=== PATIENT | male | born 1970 | race Caucasian/White ===

== ENCOUNTER 2018-05-23 05:28 | Inpatient (IN) | payer BC ==
[2018-05-23] MEDS ORDERED: ACETAMINOPHEN 500 MG TAB PO ONE (06:08)
[2018-05-23] MEDS ORDERED: ceFAZolin 2 GM/DEXTROSE 100 ML IV ONE (06:08)
[2018-05-23] MEDS ORDERED: GABAPENTIN 300 MG CAP PO ONE (06:08)
[2018-05-23] MEDS ORDERED: LR 1,000 ML IV ONE (06:25)
[2018-05-23] MEDS ORDERED: LIDOCAINE 1% 2 ML INJ ID PRN (06:25)
--- NOTE | 2018-05-23 06:43 | PDHPUP ---
History & Physical Update H&P update statement: This history and physical update is based on an assessment of the patient which was completed after admission or registration (within 24 hours), but prior to the surgery/procedure. H&P update: H&P reviewed & patient examined, no change in patient's condition since H&P completed
[2018-05-23] MEDS ORDERED: BUPIVACAINE 0.25% 30 ML SDV ONE (06:45)
[2018-05-23] MEDS ORDERED: THROMBIN (BOVINE) 5,000 UNIT VIAL TP ONE (06:46)
[2018-05-23] MEDS ORDERED: GENTAMICIN SULFATE 80 MG/2 ML VIAL ONE (06:46)
[2018-05-23] MEDS ORDERED: CHLORHEXIDINE GLUC HIBICLENS 118 ML BTL TP ONE (06:46)
[2018-05-23] MEDS ORDERED: SURGIFLO MATRIX KIT WITH THROMBIN 8 ML TP ONE ×2 (06:46→08:35)
--- NOTE | 2018-05-23 06:48 | PDANEPAE ---
ANE History of Present Illness here for [facility] ANE Past Medical History - Cardiovascular History Hx Hypertension: No Hx Arrhythmias: No Hx Chest Pain: No Hx Coronary Artery / Peripheral Vascular Disease: No Hx CHF / Valvular Disease: No Hx Palpitations: No - Pulmonary History Hx COPD: No Hx Asthma/Reactive Airway Disease: No Hx Recent Upper Respiratory Infection: No Hx Oxygen in Use at Home: No Hx Sleep Apnea: Yes Sleep Apnea Screening Result - Last Documented: Positive - Neurologic History Hx Cerebrovascular Accident: No Hx Seizures: No Hx Dementia: No - Endocrine History Hx Diabetes: No - Renal History Hx Renal Disorders: No - Liver History Hx Hepatic Disorders: No - Neurological & Psychiatric Hx Hx Neurological and Psychiatric Disorders: Yes Neurological / Psychiatric History Comment: tingling to R ankle and foot,toes with go sleep - Cancer History Hx Cancer: No - Congenital Disorder History Hx Congenital Disorders: No - GI History Hx Gastrointestinal Disorders: No - Other Health History Other Health History: NONE - Chronic Pain History Chronic Pain: No - Surgical History Prior Surgeries: none in last 5 yrs. last sx knee 2001tendon repair ANE Review of Systems Review of Systems: - Exercise capacity Exercise capacity: >=4 METS METS (RN): 5 METS ANE Patient History - Allergies Allergies/Adverse Reactions: No Known Allergies Allergy (Verified 05/21/18 14:28) - Home Medications Home medications: home medication list seen and reviewed Home Medications: NK [No Known Home Meds] 05/21/18 [Last Taken Unknown] - NPO status NPO Status: no food or drink >8 hours - Smoking Hx Smoking Status: Never smoked - Family Anes Hx Family Hx Anesthesia Complications: none ANE Labs/Vital Signs - Vital Signs Vital Signs: reviewed preoperatively; see RN documention for details Height: 180.34 cm Weight: 131.542 kg ANE Physical Exam - Airway Neck exam: FROM, increased neck circumference Mallampati Score: Class 2 Mouth exam: normal dental/mouth exam - Pulmonary Pulmonary: no respiratory distress - Cardiovascular Cardiovascular: regular rate and rhythym - ASA Status ASA Status: II ANE Anesthesia Plan Anesthesia Plan: general endotracheal anesthesia
[2018-05-23] MEDS ORDERED: oxyCODONE IR 5 MG TAB PO PRN (07:00)
[2018-05-23] MEDS ORDERED: ALBUTEROL 3 ML DEYVIAL IH PRN (07:00)
[2018-05-23] MEDS ORDERED: ACETAMINOPHEN 500 MG TAB PO PRN (07:00)
[2018-05-23] MEDS ORDERED: NS 500 ML IV PRN (07:00)
[2018-05-23] MEDS ORDERED: LR 500 ML IV PRN (07:00)
[2018-05-23] MEDS ORDERED: HYDROCODONE/APAP 5/325 TAB PO PRN (07:00)
[2018-05-23] MEDS ORDERED: MIDAZOLAM 2 MG/2 ML VIAL IVP ONE (07:00)
[2018-05-23] MEDS ORDERED: NALOXONE HCL 0.4 MG/ML INJ IVP PRN (07:00)
[2018-05-23] MEDS ORDERED: DEXAMETHASONE 4 MG/ML VIAL IVP PRN (07:00)
[2018-05-23] MEDS ORDERED: ONDANSETRON 4 MG/2 ML VIAL IVP PRN ×2 (07:00→09:00)
[2018-05-23] MEDS ORDERED: fentaNYL 100 MCG/2 ML INJ ONE ×2 (07:07→09:27)
[2018-05-23] MEDS ORDERED: PROPOFOL/EMULSION 500 MG/50 ML BOTTLE IV ONE (07:09)
[2018-05-23] MEDS ORDERED: ROCURONIUM 50 MG/5 ML VIAL ONE (07:09)
[2018-05-23] MEDS ORDERED: EPINEPHrine 1 MG/ML INJ ONE (07:11)
[2018-05-23] MEDS ORDERED: NEOSTIGMINE METHYLSULFATE 5 MG/5 ML SYR ONE (08:45)
[2018-05-23] MEDS ORDERED: GLYCOPYRROLATE 0.2 MG/1 ML VIAL ONE ×2 (08:45)
[2018-05-23] MEDS ORDERED: BISACODYL 10 MG SUPP PR PRN (09:00)
[2018-05-23] MEDS ORDERED: LACTULOSE 20 GM/30 ML UDCUP PO PRN (09:00)
[2018-05-23] MEDS ORDERED: ONDANSETRON DISINTEGRATING 4 MG TAB PO PRN (09:00)
[2018-05-23] MEDS ORDERED: NS 1,000 ML IV SCH (09:00)
[2018-05-23] MEDS ORDERED: diphenhydrAMINE 25 MG CAP PO PRN (09:00)
[2018-05-23] MEDS ORDERED: MAGNESIUM HYDROXIDE 30 ML UDCUP PO PRN (09:00)
[2018-05-23] MEDS ORDERED: POLYETHYLENE GLYCOL 3350 17 GM PKT PO PRN (09:00)
--- NOTE | 2018-05-23 09:20 | POSTOPPROG ---
Post Op Note Date of Operation: 05/23/18 Surgeon: Shireen Suero Baccarat Manager: Gia Moise Anesthesiologist: Dr. Hong Anesthesia: GET(General Endotracheal) Pre-op Diagnosis: lumbar disc herniation Post-op Diagnosis: lumbar disc herniation Procedure: right L4/5 microdiscectomy Inf/Abcess present in the surg proc area at time of surgery?: No Depth: Deep Incisional (Fascial) EBL: Minimal Plan Plan: 48 yo male s/p right L4/5 microdiscectomy with dural bleb, no CSF leak - neuro checks - pain control - HOB flat for 48 hours until 05/25 at 0900. Then may raise HOB by 10 degrees every hour - plan for home on Sat Exam Awake. Alert PERRL. EOMI Muscle strength full at 5/5 Incision with dressing Leg pain improved.
[2018-05-23] MEDS: fentaNYL 100 MCG/2 ML INJ IVP PRN ×2 (09:29→09:42)
--- NOTE | 2018-05-23 09:36 | GOP ---
DATE OF OPERATION: SURGEON: Shireen Suero DO NEUROSURGEON: Shireen Suero DO CASINO SURVEILLANCE OFFICER: TERRA Campos PREOPERATIVE DIAGNOSIS: 1. Herniated nucleus pulposus. 2. Radiculopathy. POSTOPERATIVE DIAGNOSIS: 1. Herniated nucleus pulposus. 2. Radiculopathy. PROCEDURE PERFORMED: Right L4-5 microdiskectomy. FINDINGS: SPECIMENS: None. ESTIMATED BLOOD LOSS: 30 mL. INDICATIONS: This is a 48-year-old male with severe radiculopathy secondary to a very large free fra gment of herniated nucleus polyposis from the L4-5 disk space. He has failed conservative management , elected to move forward with microdiskectomy. DESCRIPTION OF PROCEDURE: He was identified, consented, and sites were marked. Brought to the opera ting room, anesthetized under general endotracheal tube anesthesia, rolled onto the OR bed with a Justyn son frame. All pressure points were appropriately padded. Incision site was marked after cleansing the skin with chlorhexidine with an 18-gauge spinal needle, and an x-ray incision. He was prepped an d draped in the usual sterile fashion. Incision was anesthetized with 0.5% Marcaine with epinephrine . Incision was made with a 10 blade. Hemostasis was obtained with bipolar and a Bovie cautery disse cting down onto the laminae of L4 and 5. We measured and placed the ShadowLine retractor, placed a P enfield 4, took an x-ray, verified we were in appropriate position. Using high-speed drill, created a laminotomy, moving more superiorly as this free fragment had migrated posterior to the body of L4. Once we had the laminotomy performed, we opened the ligamentum flavum with a ball-tip probe and raimundo francisco the ligamentum flavum. We were able to retract the trachea nerve root medially, and found a free fragment of disk. We retracted the trachea nerve root medially with a nerve root retractor. Using a pituitary, pulled this free fragment of disk out of this space. At that point in time, we saw a bl eb that was then dorsal, that was unable to be repaired secondary to its location. We explored the r emainder of the space. This bleb remained intact. There was no active CSF leaking. We copiously ir rigated with over a liter of gentamicin-infused saline. Obtain meticulous hemostasis with Floseal, a nd then closed the fascia with 0 Vicryl pop-offs, subcutaneous layer 2 Vicryl pop offs, subcutaneous layer of 3-0 Vicryl pop-offs. The skin was closed with a 4-0 running nylon. The patient will be poole d flat to prevent a CSF leak. Neuro monitoring remained stable. FLUID: 650 mL crystalloid. URINE OUTPUT: None. DRAINS: None. COMPLICATIONS: As the disk was being removed, an arachnoid bleb was noticed in a dorsal location santino t is unrepairable. There was no active CSF leaking. /[id number]/MODL
[2018-05-23] MEDS: METHOCARBAMOL 750 MG TAB PO PRN ×3 (09:40→22:56)
[2018-05-23] MEDS ORDERED: METHOCARBAMOL 750 MG TAB ONE (09:41)
[2018-05-23] MEDS ORDERED: HYDROmorphONE/DILAUDID 2 MG/ML INJ ONE ×2 (09:46→11:16)
[2018-05-23] MEDS ORDERED: HYDROCODONE/APAP 5/325 TAB ONE (09:53)
[2018-05-23] MEDS ORDERED: oxyCODONE IR 5 MG TAB ONE ×2 (11:15→11:21)
[2018-05-23] MEDS: HYDROmorphONE/DILAUDID 1 MG/ML INJ IVP PRN ×2 (11:22→16:49)
--- NOTE | 2018-05-23 11:29 | POSTANESTH ---
Post Anesthetic Evaluation Cardiovascular Status: Normal, Stable Respiratory Status: Normal, Stable Level of Consciousness/Mental Status: Can Participate in Eval Pain Control: Adequate, Prn Tx Ordered Nausea/Vomiting Control: Adequate, Prn Tx Ordered Complications Possibly Related to Anesthesia: None Noted
--- NOTE | 2018-05-23 12:10 | PDMN ---
Medical Necessity Medical necessity: Pt meets inpt criteria per MD order and [facility] [place] [id number], Lumbar Diskectomy. 48 y/o w/severe radiculopathy sec to free fragment of herniated nucleus polyposis from L4/5 disc space, failed conservative management, underwent L4/5 microdiscectomy, unrepairable dural bleb noted in dorsal location /no CSF leaking but pt will need to have HOB flat X 48 hrs, neuro checks, pain control, anticipate >2MN stay w/dc 05/26/18 per MD.
[2018-05-23] MEDS: SENNOSIDES/DOCUSATE SODIUM TAB PO SCH ×2 (13:36→20:00)
[2018-05-23] MEDS: oxyCODONE IR 5 MG TAB PO PRN ×4 (13:37→23:01)
[2018-05-23] MEDS: ACETAMINOPHEN 500 MG TAB PO SCH ×2 (13:37→22:57)
[2018-05-23] MEDS: FAMOTIDINE 20 MG TAB PO SCH ×2 (13:37→20:00)
[2018-05-23] MEDS: ceFAZolin 2 GM/DEXTROSE 100 ML IV SCH ×2 (15:16→23:00)
[2018-05-24] MEDS: HYDROmorphONE/DILAUDID 1 MG/ML INJ IVP PRN (04:31)
[2018-05-24] MEDS: METHOCARBAMOL 750 MG TAB PO PRN ×3 (04:31→21:43)
[2018-05-24] MEDS: oxyCODONE IR 5 MG TAB PO PRN ×2 (04:31→13:56)
[2018-05-24] MEDS: ACETAMINOPHEN 500 MG TAB PO SCH ×3 (05:37→21:43)
[2018-05-24] MEDS: FAMOTIDINE 20 MG TAB PO SCH ×2 (08:14→21:44)
[2018-05-24] MEDS: SENNOSIDES/DOCUSATE SODIUM TAB PO SCH ×2 (08:14→21:43)
[2018-05-24] MEDS: ENOXAPARIN 40 MG/0.4 ML SYR SC SCH (08:14)
--- NOTE | 2018-05-24 10:13 | NEUSURGPN ---
Assessment/Plan: 48 yo male s/p right L4/5 microdiscectomy with dural bleb, no CSF leak POD1 - neuro checks - pain control - HOB flat for 48 hours until 05/25 at 0900. Then may raise HOB by 20 degrees every hour -Okay to roll from sided to side, bend knees. - Discussed no straining with bowel movement for 2 weeks post op -IS/pulmonary toliet -DVT prophx: TEDs, SCDs, lovenox - plan for home on Sat Subjective: low back pain tolerable with medications. Leg pain improved post surgery. Objective: NAD A&Ox3 MAEx4 09/09 and equal in BUE and BLE. Incision flat/clean/dry - Physician Discussed Patient with Dr.: Pio Neurosurgery Physical Exam - Vitals, I&O, Labs I and O 05/23/18 05/24/18 05/25/18 05:59 05:59 05:59 Intake Total 2481 Output Total 525 Balance 1956 Weight 131.542 kg Intake: Oral (ml) 905 IV Intake (ml) 1000 IV Infused (ml) 576 Ns 1,000 ml @ 75 mls/hr 476 IV CONT ANTHONY Rx#: [id number] ceFAZolin 2 GM/DEXTROSE 100 100 ml @ 200 mls/hr IV Q8H ANTHONY Rx#:[id number] Output: Urine (ml) 500 Urinal 500 Estimated Blood Loss (ml) 25 Vital Signs Temp Pulse Resp BP Pulse Ox 36.7 C 59 L 16 114/64 94 05/24/18 07:38 05/24/18 07:38 05/24/18 07:38 05/24/18 07:38 05/24/18 07:38 ICD10 Worksheet Patient Problems: Problems Problem Status Onset Lumbar stenosis Acute - ICD10 Problem Qualifiers (1) Lumbar stenosis
--- NOTE | 2018-05-24 12:24 | ASMTCMCOM ---
CM Note CM Note Notes: Pt had planned surgery for lumbar disc herniation. Pt resides in [place] with . No therapies ordered now, pt HOB to be flat until tomorrow am. Neurosurgery note indicates pt d/c home Monday. CM to follow. Date Signed: 05/24/2018 12:22 PM Electronically Signed By:ALO Maria
[2018-05-25] MEDS: ACETAMINOPHEN 500 MG TAB PO SCH (05:38)
[2018-05-25 07:28] VITALS: BP 107/58
--- NOTE | 2018-05-25 07:59 | NEUSURGPN ---
Date of Surgery: 05/23/18 Post Op Day: 2 Assessment/Plan: 48 yo male s/p right L4/5 microdiscectomy with dural bleb, no CSF leak POD2 - neuro stable, leg pain improved - pain controlled on orals - raise HOB by 10 degrees every hour starting at 0900 today. Once fully upright can be out of bed as tolerated - if progresses well today can be discharged home - SCDs/TEDs, Lovenox - please contact neurosurgery with any changes in neuro status/exam The patient was seen by myself and Dr. Suero. Subjective: Leg pain improved. Objective: Awake. Alert. PERRL. EOMI Muscle strength full at 5/5 Sensation intact - Physician Patient Seen by Dr.: Pio Neurosurgery Physical Exam - Vitals, I&O, Labs I and O 05/24/18 05/25/18 05/26/18 05:59 05:59 05:59 Intake Total 2481 1050 Output Total 525 Balance 1956 1050 Weight 131.542 kg Intake: Oral (ml) 905 1050 IV Intake (ml) 1000 IV Infused (ml) 576 Ns 1,000 ml @ 75 mls/hr 476 IV CONT ANTHONY Rx#: [id number] ceFAZolin 2 GM/DEXTROSE 100 100 ml @ 200 mls/hr IV Q8H ANTHONY Rx#:[id number] Output: Urine (ml) 500 Urinal 500 Estimated Blood Loss (ml) 25 Other: Intake Quantity Yes Sufficient Number of Voids Urinal 2 Vital Signs Temp Pulse Resp BP Pulse Ox 97.8 C H 63 14 107/58 L 92 05/25/18 07:25 05/25/18 07:25 05/25/18 07:25 05/25/18 07:25 05/25/18 07:25 ICD10 Worksheet Patient Problems: Problems Problem Status Onset Lumbar stenosis Acute
[2018-05-25] MEDS: ENOXAPARIN 40 MG/0.4 ML SYR SC SCH (10:02)
[2018-05-25] MEDS: FAMOTIDINE 20 MG TAB PO SCH (10:03)
[2018-05-25] MEDS: SENNOSIDES/DOCUSATE SODIUM TAB PO SCH (10:03)
--- NOTE | 2018-05-25 16:49 | ASMTLACE ---
BAY Length of stay for Answers: 3 days current admission Acuity / Level of Answers: Yes Care: Did the patient have an inpatient admission? # of Emergency department Answers: 0 visits in the last 6 months Score: 6 Date Signed: 05/25/2018 04:48 PM Electronically Signed By:ALO Maria
--- NOTE | 2018-05-25 16:50 | ASMTCMCOM ---
CM Note CM Note Notes: Pt medically stable for d/c, no CM d/c needs identified. Date Signed: 05/25/2018 04:49 PM Electronically Signed By:ALO Maria
--- NOTE | 2018-05-29 10:11 | GDS ---
ADMITTING DIAGNOSIS: Lumbar herniated disk with radiculopathy. DISCHARGE DIAGNOSIS: Herniated disk with radiculopathy. PROCEDURE PERFORMED: Right L4-5 microdiskectomy. HOSPITAL COURSE: The patient is a 48-year-old male with severe radiculopathy secondary to a large he rniated disk at L4-5. The patient had failed conservative treatment and elected to move forward with surgical intervention. He underwent surgery by Dr. Shireen Suero on May 23 with a right L4-5 henrietta rodiskectomy. Intraoperatively, a dural bleb was noted, and therefore, he was admitted to the hospit al to lie flat for 48 hours as a precaution in order to prevent a CSF leak. After 48 hours, the little ent's head of bed was raised slowly 10 degrees every hour. He tolerated this well and did not develo p a headache. He was therefore deemed suitable for discharge on May 25, 2018. He was asked to s yenni in the area for the next 5 days and lie flat as much as possible, then he can be upright and ambu late as tolerated. The patient was discharged to home on May 25, 2018. DISCHARGE INSTRUCTIONS: The patient was asked to follow up with Dr. Shireen Suero in 2 weeks for sutu re removal and wound check. He should refrain from lifting more than 10 pounds and bending and twist ing. DISCHARGE MEDICATIONS: Oxycodone 5 mg 1-2 every 4-6 hours as needed for pain and Robaxin 750 mg 1 ta blet every 8 hours as needed for pain. /[id number]/MODL
== END 2018-05-25 13:58 | disposition home or self-care (01) | DRG 520 ==
LOC: FSGY 05:28 → F3N 09:00
PROVIDERS: ADMIT Neurological Surgery; ATTEND Neurological Surgery
PROC: 0ST20ZZ Resection of Lumbar Vertebral Disc, Open Approach (ICD-10-PCS; principal; 2018-05-23 07:15)
DX: M51.16 Intervertebral disc disorders with radiculopathy, lumbar region (principal)
CPT/HCPCS: J0171; J0690; J1170; J1580; J1650; J2250; J2704; J2710; J3010